=== PATIENT | female | born 1995 | race Caucasian/White ===

== ENCOUNTER 2017-08-23 23:43 | Inpatient (IN) | payer BC ==
[2017-08-24] MEDS ORDERED: hydrOXYzine HCl 25 MG Tab PO PRN (00:14)
[2017-08-24] MEDS: Lactated Ringers 1,000 ML IV SCH ×2 (03:05→09:00)
[2017-08-24] MEDS ORDERED: Ondansetron 4 MG/2 ML SDV IV PRN (03:17)
[2017-08-24] MEDS ORDERED: Tranexamic Acid 1,000 MG in Sodium Chloride 0.9% 100 ML IV PRN ×2 (03:17→11:54)
[2017-08-24] MEDS ORDERED: Sodium Chloride 0.9% 10 ML Syringe FLUSH PRN (03:17)
[2017-08-24] MEDS ORDERED: Nalbuphine 20 MG/1 ML Amp IM PRN (03:17)
[2017-08-24] MEDS ORDERED: Methylergonovine 0.2 MG/1 ML Amp IM PRN (03:17)
[2017-08-24] MEDS ORDERED: Carboprost Tromethamine 250 MCG/1 ML Amp IM PRN (03:17)
[2017-08-24] MEDS ORDERED: Lactated Ringers 500 ML IV ONE (03:17)
[2017-08-24] MEDS ORDERED: Misoprostol 400 MCG (4 X 100 MCG TAB) RECTAL PRN (03:17)
[2017-08-24] MEDS ORDERED: Oxytocin/Normal Saline 30 UNIT/500 ML BAG IV SCH (03:30)
[2017-08-24] MEDS ORDERED: EPINEPHrine 1 MG/ML SDV ONE ×2 (07:29→13:21)
[2017-08-24] MEDS ORDERED: fentaNYL 100 MCG/2 ML SDV ONE (07:29)
--- NOTE | 2017-08-24 10:08 | PCM.PRNOTE ---
- Free Text/Narrative Note: Requested to provide analgesia to full term patient in severe pain. Upon entering the room, patient is sitting on edge of bed complaining of severe abdominal pain and discomfort. Procedure was discussed with patient including adverse outcomes and expectations. Pt consented to analgesia, SAB/IT. Pt placed into a sitting position. Landmarks for SAB/IT were identified and marked. Back was prepped with betadine x3. A sterile, transparent, fenestrated drape was applied. Excess betadine was removed. Using 3 mL of a 1% lidocaine solution, a skin wheel was placed at the L3/L4 interspace. A 24 ga (4 inch) Pencan spinal needle was inserted until positive for CSF. Negative for heme or paresthesias. Injected fentanyl 20 mcg, sufentanil 10 mcg, and 9.75 mg of a 0.75% bupivacaine solution with an epi wash. Pt was placed left lateral position for approximately 20 minutes. There were zero complications or adverse outcomes. Will continue to monitor.
[2017-08-24] MEDS ORDERED: Simethicone 80 MG Tab.Chew PO PRN (11:54)
[2017-08-24] MEDS ORDERED: Oxytocin 10 Units/1 ML SDV IM PRN (11:54)
[2017-08-24] MEDS ORDERED: Benzocaine/Menthol 20%-0.5% Spray 56 GM Canister TOP PRN (11:54)
[2017-08-24] MEDS ORDERED: fentaNYL 100 MCG/2 ML SDV ITHECAL ONE (13:21)
--- NOTE | 2017-08-24 13:55 | PCM.LDHP ---
L&D History of Present Illness - General Date of Service: 08/24/17 Admit Problem/Dx: Patient Status Order with Admit Dx/Problem 08/24/17 03:18 Patient Status [ADT] Routine Admission Diagnosis/Problem Admission Diagnosis/Problem Normal labor Source of Information: Patient History Limitations: Reports: No Limitations - History of Present Illness Introduction:: 21-year-old at 40w6d presented to labor and delivery around midnight with increasing contractions since 3:00 PM. Date he had been active. No leaking of fluid or vaginal bleeding. Patient was monitored for 3 hours and noted to have made significant cervical change so she was admitted for management of active labor. Upon my examination, patient had just received her intrathecal and was quite comfortable. No dizziness or lightheadedness. No hypotension. Patient was otherwise feeling well. Pain Score: 9 - Related Data Allergies/Adverse Reactions: Allergies Allergy/AdvReac Type Severity Reaction Status Date / Time amoxicillin Allergy Hives Verified 08/23/17 23:54 Sulfa (Sulfonamide Allergy Hives Verified 08/23/17 23:54 Antibiotics) Past Medical History Genitourinary History: Reports: [employer]D [employer] History: Reports: Other (See Below) Other OB/BYN History: BV, + GBS Musculoskeletal History: Reports: RA - Past Surgical History HEENT Surgical History: Reports: Tonsillectomy Social & Family History - Family History Family Medical History: Noncontributory - Tobacco Use Smoking Status *Q: Current Every Day Smoker Years of Tobacco use: 5 Packs/Tins Daily: 1 Used Tobacco, but Quit: No Second Hand Smoke Exposure: Yes - Caffeine Use Caffeine Use: Reports: Soda - Recreational Drug Use Recreational Drug Use: No H&P Review of Systems - Review of Systems: Review Of Systems: See Below General: Reports: No Symptoms HEENT: Reports: No Symptoms Pulmonary: Reports: No Symptoms Cardiovascular: Reports: No Symptoms Gastrointestinal: Reports: No Symptoms Genitourinary: Reports: No Symptoms Musculoskeletal: Reports: No Symptoms L&D Exam - Exam Exam: See Below - Vital Signs Vital Signs: Last Vital Signs Temp 36.5 C 08/24/17 07:40 Pulse 80 08/24/17 08:30 Resp 16 08/24/17 08:30 BP 110/64 08/24/17 08:30 Pulse Ox 99 02/14/18 08:30 Weight: 97.069 kg - OB Specific Contraction Duration (sec): 90-110 Contraction Frequency (min): 4-5 Contraction Intensity: Moderate to Strong Movement: Active Heart Tones: Present Heart Tones per Min: 140 Presentation: Vertex - Mejia Score Mejia Score Cervix Position: Anterior Mejia Score Consistency: Soft Mejia Score Effacement: >80% (90) Mejia Score Dilation: > 5 cm (7) Mejia Score 's Station: -1 ,0 Mejia Score Total: 12 - Exam General: Alert, Oriented HEENT: Conjunctiva Clear, Mucosa Moist & [place], Posterior Pharynx Clear Lungs: Clear to Auscultation, Normal Respiratory Effort Cardiovascular: Regular Rate, Regular Rhythm. No: Systolic Murmur, Diastolic Murmur GI/Abdominal Exam: Normal Bowel Sounds Genitourinary: Normal external exam Extremities: No Pedal Edema Skin: Warm, Dry, Intact - Patient Data Lab Results Last 24 hrs: Laboratory Results - last 24 hr 08/24/17 Range/Units 03:30 WBC 18.1 H (5.0-10.0) 10^3/uL RBC 3.64 L (4.2-5.4) 10^6/uL Hgb 10.1 L (12.0-16.0) g/dL Hct 30.7 L (37.0-47.0) % MCV 84.3 (80-100) fL MCH 27.7 (27.0-34.0) pg MCHC 32.9 L (33.0-35.0) g/dL Plt Count 195 (150-450) 10^3/uL Result Diagrams: 08/24/17 03:30 - Problem List (1) care in third trimester SNOMED Code(s): 245437902, 48166667, 507685163, 467417800 ICD Code: Z34.93 - ENCNTR FOR SUPRVSN OF NORMAL PREG, UNSP, THIRD TRIMESTER Status: Acute Current Visit: Yes (2) Tobacco smoking affecting in third trimester SNOMED Code(s): 099810279, 466541002, 062160812, 011019632 ICD Code: O99.333 - SMOKING (TOBACCO) COMPLICATING , THIRD TRIMESTER Status: Acute Current Visit: Yes (3) GBS (group B Streptococcus carrier), +RV culture, currently SNOMED Code(s): 6460968316714, 2354452802058 ICD Code: O99.820 - STREPTOCOCCUS B CARRIER STATE COMPLICATING Status: Acute Current Visit: Yes (4) Rubella non-immune status, antepartum SNOMED Code(s): 690888271 ICD Code: O99.89 - OTH DISEASES AND CONDITIONS COMPL PREG/CHLDBRTH; Z28.3 - UNDERIMMUNIZATION STATUS Status: Acute Current Visit: Yes Problem List Initiated/Reviewed/Updated: Yes Orders Last 24hrs: Active Orders 24 hr Category Date Time Status Patient Status [ADT] Routine ADT 08/24/17 03:18 Active Notify Provider Vital Signs OB [RC] ASDIRECTED Care 08/24/17 03:18 Active OB Check [OM.PC] Click To Edit Care 08/24/17 00:14 Ordered Pump Management, Intrathecal [RC] ASDIRECTED Care 08/24/17 03:20 Inactive Up ad Cassi [RC] ASDIRECTED Care 08/24/17 03:18 Active Vital Signs [RC] PFP Care 08/24/17 11:54 Active Consult to Mattress Specialist [CONS] Routine Cons 08/24/17 11:54 Active Regular Diet [DIET] Diet 08/24/17 Lunch Active Acetaminophen [Tylenol] Med 08/24/17 03:17 Active 650 mg PO Q4H PRN Benzocaine/Menthol [Dermoplast Pain Relief [place]] Med 08/24/17 11:54 Active See Dose Instructions TOP Q4H PRN Carboprost Tromethamine [Hemabate DS] Med 08/24/17 03:17 Active 250 mcg IM ASDIRECTED PRN Docusate Sodium [Colace] Med 08/24/17 11:54 Active 100 mg PO BID PRN Ibuprofen [Motrin] Med 08/24/17 11:54 Active 800 mg PO Q8H PRN Methylergonovine [Methergine] Med 08/24/17 03:17 Active 0.2 mg IM ASDIRECTED PRN Misoprostol [Cytotec] Med 08/24/17 03:17 Active 800 mcg RECTAL ASDIRECTED PRN Ondansetron [Zofran] Med 08/24/17 03:17 Active 4 mg IV Q4H PRN Oxytocin [Pitocin] Med 08/24/17 11:54 Active 10 unit IM ONETIME PRN Oxytocin/Normal Saline [Pitocin in NS 30 UNIT/500 ML] Med 08/24/17 03:30 Active 30 unit in 500 ml IV TITRATE Vit with Ca/FA/Iron [ Plus Iron] Med 08/25/17 09:00 Active 1 each PO DAILY Simethicone Med 08/24/17 11:54 Active 80 mg PO Q4H PRN Sodium Chloride 0.9% [Saline Flush] Med 08/24/17 03:17 Active 10 ml FLUSH ASDIRECTED PRN Tranexamic Acid [Cyklokapron] 1,000 mg Med 08/24/17 11:54 Active Sodium Chloride 0.9% [Normal Saline] 100 ml IV ONETIME Assess Lochia [WOMSER] Per Unit Routine Ot 08/24/17 11:54 Ordered Assess Uterine Involution [WOMSER] Per Unit Routine Oth 08/24/17 11:54 Ordered Breast Pump [WOMSER] Per Unit Routine Ot 08/24/17 11:54 Ordered Heart Monitor External [WOMSER] Routine Ot 08/24/17 00:14 Ordered Ice Therapy [OM.PC] Per Unit Routine Oth 08/24/17 11:54 Ordered Perineal Care [OM.PC] Per Unit Routine Ot 08/24/17 11:54 Ordered Saline Lock Insert [OM.PC] Routine Ot 08/24/17 03:18 Ordered Sitz Bath [OM.PC] Per Unit Routine Oth 08/24/17 11:54 Ordered Resuscitation Status Routine Resus Stat 08/24/17 03:17 Ordered Medication Orders Acetaminophen (Tylenol) 650 mg PO Q4H PRN PRN Reason: Pain (Mild 1-3) and fever Benzocaine/Menthol (Dermoplast Pain Relief [place]) 0 gm TOP Q4H PRN PRN Reason: Perineal comfort measures Carboprost Tromethamine (Hemabate Ds) 250 mcg IM ASDIRECTED PRN PRN Reason: HEMORRHAGE Docusate Sodium (Colace) 100 mg PO BID PRN PRN Reason: Constipation Oxytocin/Sodium Chloride (Pitocin In Ns 30 Unit/500 Ml) 30 unit in 500 mls @ 2 mls/hr IV TITRATE REID; 2 MUNITS/MIN PRN Reason: Protocol Last Titration: 08/24/17 12:05 Dose: 250 mls/hr Admin: 08/24/17 11:55 Dose: 2 munits/min, 500 mls/hr Tranexamic Acid 1,000 mg/ (Sodium Chloride) 110 mls @ 660 mls/hr IV ONETIME PRN PRN Reason: Bleeding Ibuprofen (Motrin) 800 mg PO Q8H PRN PRN Reason: Mild Pain or Fever Methylergonovine Maleate (Methergine) 0.2 mg IM ASDIRECTED PRN PRN Reason: Hemorrhage Misoprostol (Cytotec) 800 mcg RECTAL ASDIRECTED PRN PRN Reason: Hemorrhage Ondansetron HCl (Zofran) 4 mg IV Q4H PRN PRN Reason: Nausea/Vomiting Last Admin: 08/24/17 07:35 Dose: 4 mg Oxytocin (Pitocin) 10 unit IM ONETIME PRN PRN Reason: Bleeding Prenat Multivit/Drapery Worker/Iron/Folic Ac ( Plus Iron) 1 each PO DAILY REID Simethicone (Simethicone) 80 mg PO Q4H PRN PRN Reason: Gas Sodium Chloride (Saline Flush) 10 ml FLUSH ASDIRECTED PRN PRN Reason: Keep Vein Open Assessment/Plan Comment:: 21-year-old in active labor at 40w5d 1. Continue routine intrapartum caries. 2. AROM for thin meconium fluid. Moderate amount. 4. Patient has received 2 doses vancomycin for GBS positive status. 4. Patient is comfortable with intrathecal. 5. Expectant management. Anticipate vaginal delivery. Sally Campoverde MD
--- NOTE | 2017-08-24 14:02 | PCM.DEL ---
L & D Note - General Info Date of Service: 08/24/17 Mother's Due Date: 08/19/17 - Delivery Note Labor: Spontaneous, Augmented by ARM, Augmented by Oxytocin Delivery Outcome: Livebirth Delivery Method: Spontaneous Vaginal Delivery-Single Presentation: Vertex Nuchal Cord: None Prep: Povidone-Iodine (Betadine Anesthesia Type: Intrathecal Amniotic Fluid Description: Meconium Stained Episiotomy Type: None Laceration: 1st Degree, Labial (Bilateral) Suture size: 4-0 Placenta: Intact, Spontaneous Cord: 3 Vessels Estimated Blood Loss: 175 [place]: Bulb Syringe, Stimulated, Warmed Provider: Sally Campoverde Score 1 min: 8 Score 5 min: 9 Delivery Comments (Free Text/Narrative):: 21-year-old at 40w5d presented to labor and delivery in active labor. She progressed to 5 cm dilated and received intrathecal. She also received 2 doses of vancomycin for GBS positive status. Patient received an intrathecal for pain control and her membranes were artificially ruptured for moderate amount of meconium-stained fluid. Patient then progressed to complete dilation. She pushed for approximately 40 minutes with good progress and delivered a viable female infant with Apgars of 8 and 9 at one and 5 minutes respectively. Baby was placed on mother. Umbilical cord was clamped twice and cut. Cord blood was collected. Examination of the perineum revealed a first-degree perineal laceration was hemostatic. No repair was necessary. Patient did have bilateral labial tears which were reapproximated with 4-0 Vicryl suture. The placenta then delivered spontaneously and was noted to be intact. Bleeding was brisk initially but resolved with bimanual massage and sweeping of clots from the lower uterine segment. Patient tolerated the procedure well, and there were no immediate complications. weight and measurements are pending at this time. - General Info Date of Service: 08/24/17 - Patient Data Vitals - Most Recent: Last Vital Signs Temp 36.5 C 08/24/17 07:40 Pulse 80 08/24/17 08:30 Resp 16 08/24/17 08:30 BP 110/64 08/24/17 08:30 Pulse Ox 99 08/24/17 08:30 Weight - Most Recent: 97.069 kg I&O - Last 24 Hours: Intake & Output 08/23/17 08/24/1718 22:59 06:59 14:59 Intake Total 25 Balance 25 Lab Results Last 24 Hours: Laboratory Results - last 24 hr 08/24/17 Range/Units 03:30 WBC 18.1 H (5.0-10.0) 10^3/uL RBC 3.64 L (4.2-5.4) 10^6/uL Hgb 10.1 L (12.0-16.0) g/dL Hct 30.7 L (37.0-47.0) % MCV 84.3 (80-100) fL MCH 27.7 (27.0-34.0) pg MCHC 32.9 L (33.0-35.0) g/dL Plt Count 195 (150-450) 10^3/uL Med Orders - Current: Current Medications Acetaminophen (Tylenol) 650 mg PO Q4H PRN PRN Reason: Pain (Mild 1-3) and fever Benzocaine/Menthol (Dermoplast Pain Relief [place]) 0 gm TOP Q4H PRN PRN Reason: Perineal comfort measures Carboprost Tromethamine (Hemabate Ds) 250 mcg IM ASDIRECTED PRN PRN Reason: HEMORRHAGE Docusate Sodium (Colace) 100 mg PO BID PRN PRN Reason: Constipation Oxytocin/Sodium Chloride (Pitocin In Ns 30 Unit/500 Ml) 30 unit in 500 mls @ 2 mls/hr IV TITRATE REID; 2 MUNITS/MIN PRN Reason: Protocol Last Titration: 08/24/17 12:05 Dose: 250 mls/hr Tranexamic Acid 1,000 mg/ (Sodium Chloride) 110 mls @ 660 mls/hr IV ONETIME PRN PRN Reason: Bleeding Ibuprofen (Motrin) 800 mg PO Q8H PRN PRN Reason: Mild Pain or Fever Methylergonovine Maleate (Methergine) 0.2 mg IM ASDIRECTED PRN PRN Reason: Hemorrhage Misoprostol (Cytotec) 800 mcg RECTAL ASDIRECTED PRN PRN Reason: Hemorrhage Ondansetron HCl (Zofran) 4 mg IV Q4H PRN PRN Reason: Nausea/Vomiting Last Admin: 08/24/17 07:35 Dose: 4 mg Oxytocin (Pitocin) 10 unit IM ONETIME PRN PRN Reason: Bleeding Prenat Multivit/[place]/Iron/Folic Ac ( Plus Iron) 1 each PO DAILY [facility] Simethicone (Simethicone) 80 mg PO Q4H PRN PRN Reason: Gas Sodium Chloride (Saline Flush) 10 ml FLUSH ASDIRECTED PRN PRN Reason: Keep Vein Open Discontinued Medications Epinephrine HCl (Adrenalin) Confirm Administered Dose 1 mg .ROUTE .STK-MED ONE Stop: 08/24/17 07:30 Last Admin: 08/24/17 11:53 Dose: Not Given Epinephrine HCl (Adrenalin) 0.1 mg .XX .STK-MED ONE Stop: 08/24/17 13:22 Fentanyl (Sublimaze) Confirm Administered Dose 100 mcg .ROUTE .STK-MED ONE Stop: 08/24/17 07:30 Last Admin: 08/24/17 11:54 Dose: Not Given Fentanyl (Sublimaze) 20 mcg ITHECAL .STK-MED ONE Stop: 08/24/17 13:22 Hydroxyzine HCl (Atarax) 50 mg PO ONETIME PRN PRN Reason: Sleep Last Admin: 08/24/17 01:20 Dose: 50 mg Lactated Ringer's (Ringers, Lactated) 500 mls @ 999 mls/hr IV .BOLUS ONE Stop: 08/24/17 03:47 Last Admin: 08/24/17 07:44 Dose: 999 mls/hr Lactated Ringer's (Ringers, Lactated) 1,000 mls @ 125 mls/hr IV ASDIRECTED [facility] Last Admin: 08/24/17 09:00 Dose: 125 mls/hr Tranexamic Acid 1,000 mg/ (Sodium Chloride) 110 mls @ 600 mls/hr IV ONETIME PRN PRN Reason: Bleeding Vancomycin HCl 1 gm/ Sodium (Chloride) 250 mls @ 166.7 mls/hr IV Q12H [facility] Last Admin: 08/24/17 04:06 Dose: 166.7 mls/hr Nalbuphine HCl (Nubain) 20 mg IM ONETIME PRN PRN Reason: Pain (moderate 4-6) Last Admin: 08/24/17 03:35 Dose: 20 mg Sufentanil Citrate (Sufenta) Confirm Administered Dose 50 mcg .ROUTE .STK-MED ONE Stop: 08/24/17 07:30 Last Admin: 08/24/17 11:54 Dose: Not Given Sufentanil Citrate (Sufenta) 10 mcg ITHECAL .STK-MED ONE Stop: 08/24/17 13:22 - Problem List & Annotations (1) care in third trimester SNOMED Code(s): 740676476, 53699983, 621407839, 868027292 Code(s): Z34.93 - ENCNTR FOR SUPRVSN OF NORMAL PREG, UNSP, THIRD TRIMESTER Status: Acute Current Visit: Yes (2) Tobacco smoking affecting in third trimester SNOMED Code(s): 412786947, 162052401, 453550546, 332633388 Code(s): O99.333 - SMOKING (TOBACCO) COMPLICATING , THIRD TRIMESTER Status: Acute Current Visit: Yes (3) GBS (group B Streptococcus carrier), +RV culture, currently SNOMED Code(s): 3700873084622, 4239609272206 Code(s): O99.820 - STREPTOCOCCUS B CARRIER STATE COMPLICATING Status: Acute Current Visit: Yes (4) Rubella non-immune status, antepartum SNOMED Code(s): 026802823 Code(s): O99.89 - OTH DISEASES AND CONDITIONS COMPL PREG/CHLDBRTH; Z28.3 - UNDERIMMUNIZATION STATUS Status: Acute Current Visit: Yes - Problem List Review Problem List Initiated/Reviewed/Updated: Yes - My Orders Last 24 Hours: My Active Orders 08/24/17 00:14 OB Check [OM.PC] Click To Edit Heart Monitor External [WOMSER] Routine 08/24/17 03:17 Acetaminophen [Tylenol] 650 mg PO Q4H PRN Carboprost Tromethamine [Hemabate DS] 250 mcg IM ASDIRECTED PRN Methylergonovine [Methergine] 0.2 mg IM ASDIRECTED PRN Misoprostol [Cytotec] 800 mcg RECTAL ASDIRECTED PRN Ondansetron [Zofran] 4 mg IV Q4H PRN Sodium Chloride 0.9% [Saline Flush] 10 ml FLUSH ASDIRECTED PRN Resuscitation Status Routine 08/24/17 03:18 Patient Status [ADT] Routine Notify Provider Vital Signs OB [RC] ASDIRECTED Up ad Cassi [RC] ASDIRECTED Saline Lock Insert [OM.PC] Routine 08/24/17 03:20 Pump Management, Intrathecal [RC] ASDIRECTED 08/24/17 03:30 Oxytocin/Normal Saline [Pitocin in NS 30 UNIT/500 ML] 30 unit in 500 ml IV TITRATE 08/24/17 11:54 Vital Signs [RC] PFP Consult to Bus Cleaner [CONS] Routine Benzocaine/Menthol [Dermoplast Pain Relief [place]] See Dose Instructions TOP Q4H PRN Docusate Sodium [Colace] 100 mg PO BID PRN Ibuprofen [Motrin] 800 mg PO Q8H PRN Oxytocin [Pitocin] 10 unit IM ONETIME PRN Simethicone 80 mg PO Q4H PRN Tranexamic Acid [Cyklokapron] 1,000 mg Sodium Chloride 0.9% [Normal Saline] 100 ml IV ONETIME Assess Lochia [WOMSER] Per Unit Routine Assess Uterine Involution [WOMSER] Per Unit Routine Breast Pump [WOMSER] Per Unit Routine Ice Therapy [OM.PC] Per Unit Routine Perineal Care [OM.PC] Per Unit Routine Sitz Bath [OM.PC] Per Unit Routine 08/24/17 Lunch Regular Diet [DIET] 08/25/17 09:00 Vit with Ca/FA/Iron [ Plus Iron] 1 each PO DAILY - Assessment Assessment:: 21-year-old now status post normal spontaneous vaginal delivery - Plan Plan:: 1. Initiate routine intrapartum orders. 2. Mother plans to breast-feed. 3. Anticipate discharge on 08/26/2017. Dr. Cunha will see the patient tomorrow in my absence. Sally Campoverde MD
[2017-08-25] MEDS: Ibuprofen 800 MG Tab PO PRN ×3 (01:43→19:50)
[2017-08-25] MEDS: Prenatal Multivitamin with Calcium/Folic Acid/Iron Tab PO SCH (09:32)
[2017-08-25] MEDS: Acetaminophen 325 MG Tab PO PRN ×2 (18:00→23:02)
[2017-08-25] MEDS: Docusate Sodium 100 MG Cap PO PRN (19:51)
--- NOTE | 2017-08-25 23:01 | PN ---
DATE: 08/25/2017 TIME: 8:30 this morning. SUBJECTIVE: day #1 1, now para 1, female patient who normal spontaneous vaginal delivery with only some bilateral labial lacerations. She reports she has done well through the night. Bleeding has been a little bit heavier than a period. has not been going well, and the baby has an overall poor suck reflex even when given a bottle though she is working with the nurses on that. No fever or chills. No symptoms of preeclampsia. No chest pain or shortness of breath. Ambulating without difficulties. Tolerating a regular diet. Voiding without complications and has not had a bowel movement yet. OBJECTIVE: Vital Signs: Pulse 80, blood pressure 110/64, respiratory rate of 16, O2 saturations 99% on room air, and temperature 97.7. HEENT: Grossly unremarkable. Heart: Regular without obvious murmur. Lungs: Clear to auscultation bilaterally. Abdomen: Soft and nontender. Fundus is firm and below the umbilicus. Extremities: No edema, erythema, or tenderness noted. ASSESSMENT: 1. Post vaginal delivery day #1, doing well. 2. Bilateral labial lacerations. 3. Tobacco abuse. 4. mother. PLAN: Continue routine cares and anticipate discharge home tomorrow as long as all continues to go well. The patient's questions were answered, and she was in agreement with the plan. [facility] /[id number] MTDD
[2017-08-26] MEDS ORDERED: Measles, Mumps & Rubella Vaccine 0.5 ML SDV SUBCUT ONE (07:52)
[2017-08-26] MEDS: Prenatal Multivitamin with Calcium/Folic Acid/Iron Tab PO SCH (08:09)
[2017-08-26] MEDS: Ibuprofen 800 MG Tab PO PRN (08:09)
[2017-08-26] MEDS: Docusate Sodium 100 MG Cap PO PRN (08:09)
--- NOTE | 2017-08-27 05:46 | DISCH ---
ADMITTING DIAGNOSES: 1. A 40 and 5/7 weeks' gestation in active labor. 2. 1, para 0. 3. Tobacco use. 4. Group B streptococcus positive. 5. Rubella nonimmune. DISCHARGE DIAGNOSES: 1. A 40 and 5/7 weeks' gestation in active labor. 2. 1, now para 1. 3. Tobacco use. 4. Group B streptococcus positive. 5. Rubella nonimmune. 6. Status post spontaneous vaginal delivery, viable female infant. BRIEF HISTORY: The patient presented to the hospital in active labor, which was managed, and she was in stage I for approximately 7 hours, stage II for about 40 minutes, and stage III for approximately 15 minutes. There were no complications, and the patient did quite well. Please see admission history and physical and delivery notes for full details. HOSPITAL COURSE: Since delivery, the patient has been doing well, ambulating, tolerating, regular diet, voiding, and passing flatus. Blood loss has been as expected. She denies any symptoms of preeclampsia or severe anemia. her baby and that has been a bit of a struggle because the baby's sucking ability, but that is improving and they are working with nursing on that. DISCHARGE CONDITION: Good. PHYSICAL EXAMINATION: Vital Signs: Temperature is 97.9, pulse 92, blood pressure 132/85, respiratory rate of 16, and O2 saturations 99% on room air. Heart: Regular without obvious murmur. Lungs: Clear to auscultation bilaterally. Abdomen: Soft and nontender and fundus firm below the umbilicus. Extremities: Trace edema. No erythema or tenderness. LABORATORY DATA: Admission hemoglobin of 10.1 and platelets of 195. Dr. Campoverde elected not to repeat those prior to discharge. No additional labs were required. DISPOSITION: Home with family. FOLLOWUP: She will need to make a 6-week exam appointment when she brings her daughter in for first check. DISCHARGE INSTRUCTIONS: Routine post vaginal delivery care instructions were provided including pelvic rest for 6 weeks, to return or come back in if she has any foul-smelling drainage or discharge, fever, chills, uterine tenderness, or other acute concerns, and her questions were answered. DISCHARGE MEDICATIONS: 1. Iron 325 mg twice daily. 2. Colace 100 mg twice daily as needed for constipation. 3. Ibuprofen 600 mg every 6 hours as needed for pain. 4. Tylenol 650 mg every 6 hours as needed for pain. 5. vitamin 1 daily. [facility] /[id number]
== END 2017-08-26 09:15 | disposition home or self-care (01) | DRG 560 ==
LOC: DL.OBCHECK 23:43 → DL.OB 08-24 02:00 → OBSVTOIN 08-24 11:32
PROVIDERS: ADMIT Family Medicine; ATTEND Family Medicine
PROC: 10E0XZZ Delivery of Products of Conception, External Approach (ICD-10-PCS; principal; 2017-08-24)
PROC: 10907ZC Drainage of Amniotic Fluid, Therapeutic from Products of Conception, Via Natural or Artificial Opening (ICD-10-PCS; 2017-08-24)
PROC: 0HQ9XZZ Repair Perineum Skin, External Approach (ICD-10-PCS; 2017-08-24)
PROC: 00HU33Z Insertion of Infusion Device into Spinal Canal, Percutaneous Approach (ICD-10-PCS; 2017-08-24)
PROC: 3E0R3BZ Introduction of Anesthetic Agent into Spinal Canal, Percutaneous Approach (ICD-10-PCS; 2017-08-24)
DX: O48.0 Post-term pregnancy (principal); Z3A.41 41 weeks gestation of pregnancy; Z37.0 Single live birth; O99.824 Streptococcus B carrier state complicating childbirth; O99.334 Smoking (tobacco) complicating childbirth; Z88.1 Allergy status to other antibiotic agents; Z88.2 Allergy status to sulfonamides; O70.0 First degree perineal laceration during delivery
CPT/HCPCS: 36415; 59300; 59409; 85027; 90471; 90707; A9270-GY; J0171; J2300; J2405; J2590; J3010; J3370; J7050; J7120

== ENCOUNTER 2020-03-10 00:05 | Inpatient (IN) | payer BC ==
[~2020-03-10 00:05] MED LIST: Acetaminophen 325 MG Tab PO PRN; Butorphanol 2 MG/ML SDV IVPUSH PRN; Carboprost Tromethamine 250 MCG/1 ML Amp IM PRN; Lactated Ringers 1,000 ML IV ONE; Lidocaine 1% 30 ML SDV INJECT PRN; Methylergonovine 0.2 MG/1 ML Amp IM PRN; Misoprostol 25 MCG (1/4 of 100 MCG) Tab VAG PRN; Misoprostol 400 MCG (4 X 100 MCG TAB) RECTAL PRN; Naloxone 2 MG/2 ML Syringe IVPUSH PRN; Ondansetron 4 MG/2 ML SDV IVPUSH PRN; Oxytocin/Normal Saline 30 UNIT/500 ML BAG IV SCH; Promethazine 25 MG/ML SDV IM PRN; Sodium Chloride 0.9% 1,000 ML IV SCH; Sodium Chloride 0.9% 10 ML Syringe FLUSH PRN; Tranexamic Acid 1,000 MG in Sodium Chloride 0.9% 100 ML IV PRN; ePHEDrine 50 MG/ML SDV IVPUSH PRN; fentaNYL 100 MCG/2 ML SDV IVPUSH PRN
[2020-03-10] MEDS ORDERED: EPINEPHrine 1 MG/1 ML Amp ONE ×2 (00:09→09:19)
[2020-03-10] MEDS ORDERED: fentaNYL 100 MCG/2 ML SDV ITHECAL ONE ×2 (00:09)
[2020-03-10] MEDS: Lactated Ringers 1,000 ML IV SCH ×3 (01:48→09:25)
[2020-03-10] MEDS: Clindamycin Phosphate 900 MG in Sodium Chloride 0.9% 100 ML IV SCH ×2 (03:10→11:06)
[2020-03-10] MEDS ORDERED: Calcium Carbonate 500 MG Tab.Chew PO PRN (03:23)
[2020-03-10] MEDS ORDERED: fentaNYL 100 MCG/2 ML SDV ONE (09:19)
--- NOTE | 2020-03-10 09:48 | PCM.PRNOTE ---
- Free Text/Narrative Note: Requested to provide analgesia to full term patient in severe pain. Upon entering the room, patient is sitting on edge of bed complaining of severe abdominal/pelvic pain and discomfort. Patient is complaining of severe back labor. Procedure was discussed with patient including adverse outcomes and expectations. Pt consented to analgesia, SAB/IT. Pt placed into a proper sitting position. Landmarks for SAB/IT were identified and marked. Touching mom with hands was uncomfortable and I believe I was pretty gentle with my landmark identification. Hands were washed and appropriate PPE was applied. Back was prepped with betadine x3, pt flinched even with betadine application. A sterile, transparent, fenestrated drape was applied. Excess betadine was removed. Using 3 mL of a 1% lidocaine solution, a skin wheel was placed at the L2/L3 interspace. On first attempt, a 24 ga (4 inch) Pencan spinal needle was inserted but patient was screaming and tearful simply going through the tissue layers. I removed the needle and had a discussion with patient explaining she would feel some pressure and I could not numb any better. Patient agreed to continue. Second attempt at same location with same needle, the 24 ga Pencan was advanced until positive for CSF. Negative for heme or paresthesias. Patient tolerated much better. Injected fentanyl 30 mcg, sufentanil 25 mcg, and 7.5 mg of a 0.75% bupivacaine solution with an epi wash. Pt was placed left lateral position for approximately 20 minutes. There were zero complications or adverse outcomes. Will continue to monitor. Procedure Date & Time: 03/10/20 [id number]
[2020-03-10] MEDS: Oxytocin/Normal Saline 30 UNIT/500 ML BAG IV SCH ×2 (10:30→13:45)
--- NOTE | 2020-03-10 13:48 | PCM.LDHP ---
L&D History of Present Illness - General Date of Service: 03/10/20 Admit Problem/Dx: Patient Status Order with Admit Dx/Problem 03/09/20 23:32 Patient Status [ADT] Routine Admission Diagnosis/Problem Admission Diagnosis/Problem care in third trimester Source of Information: Patient History Limitations: Reports: No Limitations - History of Present Illness Introduction:: 24-year-old presents for elective IOL at 40w0d. Patient has been feeling well. Baby has been active. Has had [place] contractions. No vaginal bleeding or leaking of fluid. 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: , Other (See Below) Other OB/BYN History: BV, + GBS Musculoskeletal History: Reports: RA - Past Surgical History HEENT Surgical History: Reports: Tonsillectomy Social & Family History - Family History Family Medical History: Noncontributory - Tobacco Use Smoking Status *Q: Light Tobacco Smoker Years of Tobacco use: 12 Packs/Tins Daily: 1 Used Tobacco, but Quit: No Second Hand Smoke Exposure: No - Caffeine Use Caffeine Use: Reports: None - Recreational Drug Use Recreational Drug Use: No H&P Review of Systems - Review of Systems: Review Of Systems: See Below General: Reports: No Symptoms HEENT: Reports: No Symptoms Pulmonary: Reports: No Symptoms Cardiovascular: Reports: No Symptoms Gastrointestinal: Reports: No Symptoms Genitourinary: Reports: No Symptoms Musculoskeletal: Reports: No Symptoms Skin: Reports: No Symptoms L&D Exam - Exam Exam: See Below - Vital Signs Vital Signs: Last Vital Signs Temp 36.3 C 03/10/20 10:30 Pulse 64 03/10/20 12:00 Resp 16 03/10/20 12:00 BP 110/62 03/10/20 12:00 Pulse Ox 98 03/10/20 11:15 Weight: 101.605 kg - OB Specific Contraction Duration (sec): 50-80 Contraction Frequency (min): 1.5-2 Contraction Intensity: Moderate to Strong Movement: Active Heart Tones: Present Heart Tones per Min: 135 Heart Rate (FHR) Variability: Moderate (6-25 bmp) Presentation: Vertex - Mejia Score Mejia Score Cervix Position: Posterior Mejia Score Consistency: Soft Mejia Score Dilation: 3-4 cm Mejia Score Infant's Station: -1 ,0 - Exam General: Alert, Oriented Lungs: Clear to Auscultation, Normal Respiratory Effort Cardiovascular: Regular Rate, Regular Rhythm Genitourinary: Normal external exam Back Exam: Normal Inspection Extremities: Pedal Edema (Trace bilaterally) - Patient Data Lab Results Last 24 hrs: Laboratory Results - last 24 hr 03/10/20 03/10/20 Range/Units 00:25 00:27 WBC 12.8 H (5.0-10.0) 10^3/uL RBC 3.57 L (4.2-5.4) 10^6/uL Hgb 9.6 L (12.0-16.0) g/dL Hct 29.6 L (37.0-47.0) % MCV 82.9 (80-100) fL MCH 26.9 L (27.0-34.0) pg MCHC 32.4 L (33.0-35.0) g/dL Plt Count 232 (150-450) 10^3/uL COVID-19 (CONNIE) Negative (NEGATIVE) Result Diagrams: 03/10/20 00:27 - Problem List (1) GBS (group B Streptococcus carrier), +RV culture, currently SNOMED Code(s): 7788216508432, 054932464, 8808489912329 ICD Code: O99.820 - STREPTOCOCCUS B CARRIER STATE COMPLICATING Status: Acute Current Visit: No (2) care in third trimester SNOMED Code(s): 933800334, 48576644, 89882476, 286312973, 672326315 ICD Code: Z34.93 - ENCNTR FOR SUPRVSN OF NORMAL PREG, UNSP, THIRD TRIMESTER Status: Acute Current Visit: No (3) Rubella non-immune status, antepartum SNOMED Code(s): 085074567 ICD Code: O99.89 - OTH DISEASES AND CONDITIONS COMPL PREG/CHLDBRTH; Z28.3 - UNDERIMMUNIZATION STATUS Status: Acute Current Visit: No (4) Tobacco smoking affecting in third trimester SNOMED Code(s): 386613029, 62207278, 721237638, 864076179, 390044146 ICD Code: O99.333 - SMOKING (TOBACCO) COMPLICATING , THIRD TRIMESTER Status: Acute Current Visit: No Problem List Initiated/Reviewed/Updated: Yes Orders Last 24hrs: Active Orders 24 hr Category Date Time Status Patient Status [ADT] Routine ADT 03/09/20 23:32 Active Heart Rate [RC] Click to Edit Care 03/09/20 23:34 Active Nitrous Oxide Delivery [RC] ASDIRECTED Care 03/09/20 23:35 Active Notify Provider Vital Signs OB [RC] ASDIRECTED Care 03/09/20 23:32 Active OB Discontinue Nitrous Oxide [RC] ASDIRECTED Care 03/09/20 23:35 Active Pump Management, Intrathecal [RC] ASDIRECTED Care 03/09/20 23:32 Active Up ad Cassi [RC] ASDIRECTED Care 03/09/20 23:32 Active Vaginal Exam [RC] PRN Care 03/09/20 23:36 Active Verify Patient Consent Obtain [RC] ASDIRECTED Care 03/09/20 23:34 Active Vital Signs [RC] PER UNIT ROUTINE Care 03/09/20 23:32 Active Regular Diet [DIET] Diet 03/10/20 Breakfast Active Acetaminophen [TylenoL] Med 03/09/20 23:32 Active 650 mg PO Q4H PRN Butorphanol [Stadol] Med 03/09/20 23:32 Active 0.5 mg IVPUSH Q3H PRN Butorphanol [Stadol] Med 03/09/20 23:32 Active 1 mg IVPUSH Q3H PRN Calcium Carbonate [Tums] Med 03/10/20 03:23 Active 1,000 mg PO Q2H PRN Carboprost Tromethamine [Hemabate DS] Med 03/09/20 23:32 Active 250 mcg IM ASDIRECTED PRN Clindamycin Phosphate [Cleocin] 900 mg Med 03/10/20 03:00 Active Sodium Chloride 0.9% [Normal Saline] 100 ml IV Q8H Lactated Ringers [Ringers, Lactated] 1,000 ml Med 03/09/20 23:45 Active IV ASDIRECTED Lidocaine 1% [Xylocaine-MPF 1%] Med 03/09/20 23:32 Active 30 ml INJECT ASDIRECTED PRN Methylergonovine [Methergine] Med 03/09/20 23:32 Active 0.2 mg IM ASDIRECTED PRN Naloxone [Narcan] Med 03/09/20 23:34 Active 0.1 mg IVPUSH SEECOMMENT PRN Ondansetron [Zofran] Med 03/09/20 23:32 Active 4 mg IVPUSH Q4H PRN Oxytocin/Normal Saline [Pitocin in NS 30 UNIT/500 ML] Med 03/09/20 23:45 Act lesia 30 unit in 500 ml IV TITRATE Oxytocin/Normal Saline [Pitocin in NS 30 UNIT/500 ML] Med 03/09/20 23:45 Active 30 unit in 500 ml IV TITRATE Promethazine [Phenergan] Med 03/09/20 23:34 Active 12.5 mg IM Q6H PRN Sodium Chloride 0.9% [Normal Saline] 1,000 ml Med 03/09/20 23:45 Active IV .BOLUS Sodium Chloride 0.9% [Saline Flush] Med 03/09/20 23:32 Active 10 ml FLUSH ASDIRECTED PRN Tranexamic Acid [Cyklokapron] 1,000 mg Med 03/09/20 23:32 Active Sodium Chloride 0.9% [Normal Saline] 100 ml IV ONETIME ePHEDrine [ePHEDrine sulfate] Med 03/09/20 23:34 Active 5 mg IVPUSH Q5M PRN fentaNYL [Sublimaze] Med 03/09/20 23:32 Active 100 mcg IVPUSH Q1H PRN miSOPROStoL [Cytotec] Med 03/09/20 23:36 Active 25 mcg VAG Q4H PRN miSOPROStoL [Cytotec] Med 03/09/20 23:32 Active 800 mcg RECTAL ASDIRECTED PRN Blood Pressure [OM.PC] Routine Oth 03/09/20 23:34 Ordered Saline Lock Insert [OM.PC] Routine Oth 03/09/20 23:32 Ordered Resuscitation Status Routine Resus Stat 03/09/20 23:32 Ordered Medication Orders Acetaminophen (Tylenol) 650 mg PO Q4H PRN PRN Reason: Pain (Mild 1-3) and fever Butorphanol Tartrate (Stadol) 0.5 mg IVPUSH Q3H PRN PRN Reason: Pain Butorphanol Tartrate (Stadol) 1 mg IVPUSH Q3H PRN PRN Reason: Pain Last Admin: 03/10/20 06:10 Dose: 1 mg Documented by: GARRETT Calcium Carbonate/Glycine (Tums) 1,000 mg PO Q2H PRN PRN Reason: Heartburn Last Admin: 03/10/20 03:33 Dose: 1,000 mg Documented by: GARRETT Carboprost Tromethamine (Hemabate Ds) 250 mcg IM ASDIRECTED PRN PRN Reason: HEMORRHAGE Ephedrine Sulfate (Ephedrine Sulfate) 5 mg IVPUSH Q5M PRN PRN Reason: See Label Comments Fentanyl (Sublimaze) 100 mcg IVPUSH Q1H PRN PRN Reason: Pain (moderate 4-6) Last Admin: 03/10/20 12:53 Dose: 100 mcg Documented by: DIMITRI Tranexamic Acid 1,000 mg/ (Sodium Chloride) 110 mls @ 660 mls/hr IV ONETIME PRN PRN Reason: Bleeding Oxytocin/Sodium Chloride (Pitocin In Ns 30 Unit/500 Ml) 30 unit in 500 mls @ 2 mls/hr IV TITRATE REID; Protocol Clindamycin Phosphate 900 mg/ (Sodium Chloride) 106 mls @ 200 mls/hr IV Q8H REID Last Admin: 03/10/20 11:06 Dose: 200 mls/hr Documented by: Admin: 03/10/20 03:10 Dose: 200 mls/hr Documented by: GARRETT Lactated Ringer's (Ringers, Lactated) 1,000 mls @ 125 mls/hr IV ASDIRECTED REID Last Admin: 03/10/20 09:25 Dose: 125 mls/hr Documented by: Infusion: 03/10/20 09:25 Dose: 125 mls/hr Documented by: Admin: 03/10/20 06:33 Dose: 125 mls/hr Documented by: Infusion: 03/10/20 06:33 Dose: 125 mls/hr Documented by: Admin: 03/10/20 01:48 Dose: 125 mls/hr Documented by: GARRETT Sodium Chloride (Normal Saline) 1,000 mls @ 500 mls/hr IV .BOLUS REID Oxytocin/Sodium Chloride (Pitocin In Ns 30 Unit/500 Ml) 30 unit in 500 mls @ 2 mls/hr IV TITRATE REID; Protocol Last Titration: 03/10/20 11:30 Dose: 6 munits/min, 6 mls/hr Documented by: Titration: 03/10/20 11:00 Dose: 4 munits/min, 4 mls/hr Documented by: Admin: 03/10/20 10:30 Dose: 2 munits/min, 2 mls/hr Documented by: DIMITRI Lidocaine HCl (Xylocaine-Mpf 1%) 30 ml INJECT ASDIRECTED PRN PRN Reason: Perineal Repair Methylergonovine Maleate (Methergine) 0.2 mg IM ASDIRECTED PRN PRN Reason: Hemorrhage Misoprostol (Cytotec) 800 mcg RECTAL ASDIRECTED PRN PRN Reason: Hemorrhage Last Admin: 03/10/20 12:55 Dose: 800 mcg Documented by: DIMITRI Misoprostol (Cytotec) 25 mcg VAG Q4H PRN PRN Reason: cervical ripening Last Admin: 03/10/20 01:45 Dose: 25 mcg Documented by: GARRETT Naloxone HCl (Narcan) 0.1 mg IVPUSH SEECOMMENT PRN PRN Reason: Respiratory Depression Ondansetron HCl (Zofran) 4 mg IVPUSH Q4H PRN PRN Reason: Nausea/Vomiting Promethazine HCl (Phenergan) 12.5 mg IM Q6H PRN PRN Reason: Nausea/Vomiting Sodium Chloride (Saline Flush) 10 ml FLUSH ASDIRECTED PRN PRN Reason: Keep Vein Open Assessment/Plan Comment:: 24-year-old at 40w0d for elective induction 1. Patient received 1 dose Cytotec prior to my examination 2. AROM was performed for moderate clear fluid 3. Patient does desire intrathecal. 4. Expectant management. Anticipate Sally Campoverde MD
[2020-03-10] MEDS ORDERED: Sodium Chloride 0.9% 100 ML ONE (15:12)
[2020-03-10] MEDS ORDERED: Oxytocin/Normal Saline 30 UNIT/500 ML BAG ONE (15:49)
--- NOTE | 2020-03-10 15:57 | PCM.DEL ---
L & D Note - General Info Date of Service: 03/10/20 Mother's Due Date: 03/10/20 - Delivery Note Labor: Augmented by ARM, Augmented by Oxytocin Cervical Ripening Method: Misoprostil, Oxytocin Delivery Outcome: Livebirth Delivery Method: Spontaneous Vaginal Delivery-Single Presentation: Vertex Nuchal Cord: Present, Reduced Anesthesia Type: Intrathecal, Nitrous Oxide Amniotic Fluid Description: Clear Episiotomy Type: None Laceration: None Placenta: Manual Removal, Retained, Abnormal Cord: 3 Vessels Estimated Blood Loss: 2,240 Resuscitation Needed: No [place]: Bulb Syringe, Stimulated, Warmed, [place] Used Provider: Sally Campoverde Score 1 min: 8 Score 5 min: 9 Post Delivery Events: Retained Placenta Delivery Comments (Free Text/Narrative):: 24-year-old at 40w0d presented to L&D for elective IOL at 40w0d. She received 1 dose of Cytotec vaginally. She received Clindamycin for GBS positive status. After 4 hours, patient was saba too frequently for a 2nd dose of Cytotec. AROM was performed at 0900 for moderate clear fluid. Pitocin was started around 1030 for augmentation of labor. Patient received an intrathecal and nitrous oxide for pain control. She progressed to complete dilatation at 1225. Patient pushed for 2 minutes and delivered a viable female infant with Apgars of 8 and 9 at 1 and 5 minutes respectively and weighing 7 lb 11 oz. A loose nuchal cord was reduced after delivery. was placed on the mother's chest. Cord was clamped x 2 and cut by patient's significant other. Cord blood was collected. Uterine massage and gentle umbilical cord traction was used to attempt to coax the placenta to spontaneously deliver. However, after 22 minutes, there were no indications that the placenta would deliver spontaneously. Patient was given 100 mcg fentanyl and nitrous oxide. Manual removal of the placenta was performed with difficulty as finding a shearing edge was difficult. Examination of the placenta revealed obvious missing cotyledons. Manual exploration of the uterus was performed x 2 with a 3 cm piece of cotyledon and multiple small pieces of membrane being removed. Pitocin was initiated. Bleeding remained brisk. Uterus would remain firm with persistent uterine massage but would become boggy after in about 1 minute after massage was discontinued. Bimanual massage was performed a 3rd time and some stringy material was noted in the uterine fundus. Due to concern for possible need for D&C, I did consult Dr. Cunha and Dr. Hernandez. They each performed manual expl oration while the patient was sedated with propofol and did not note any obvious retained fragments. Patient received rectal Cytotec and IM methergine; however, bleeding persisted. Therefore, the decision was made to proceed with D&C. Dr. Cunha assumed care at this time. Total blood loss in the delivery room (weighted) was 2240 mL. Induction Criteria - Mejia Score Mejia Score Dilation: 1-2 cm Mejia Score Effacement: 40-50% Mejia Score 's Station: -1 ,0 Mejia Score Consistency: Soft Mejia Score Cervix Position: Midposition Mejia Score Total: 7 Mejia Score Presenting Part: Reports: Cephalic - Induction Gestational Age >/= 39 wks: Yes Estimated Pelvis: Reports: Adequate Reassuring Monitoring Strip: Yes Absence of Tachy Systole: Yes - Augmentation Estimated Pelvis: Reports: Adequate Weight Estimated:: Reports: AGA Reassuring Monitoring Strip: Yes Absence of Tachy Systole: Yes - General Info Date of Service: 03/10/20 - Patient Data Vitals - Most Recent: Last Vital Signs Temp 36.3 C 03/10/20 10:30 Pulse 94 03/10/20 12:27 Resp 18 03/10/20 12:27 BP 131/61 03/10/20 12:27 Pulse Ox 98 03/10/20 11:15 Weight - Most Recent: 101.605 kg Lab Results Last 24 Hours: Laboratory Results - last 24 hr 03/10/20 03/10/20 03/10/20 Range/Units 00:25 00:27 00:27 WBC 12.8 H (5.0-10.0) 10^3/uL RBC 3.57 L (4.2-5.4) 10^6/uL Hgb 9.6 L (12.0-16.0) g/dL Hct 29.6 L (37.0-47.0) % MCV 82.9 (80-100) fL MCH 26.9 L (27.0-34.0) pg MCHC 32.4 L (33.0-35.0) g/dL Plt Count 232 (150-450) 10^3/uL COVID-19 (CONNIE) Negative (NEGATIVE) Blood Type O POSITIVE Gel Antibody Screen Negative Crossmatch See Detail Med Orders - Current: Current Medications Acetaminophen (Tylenol) 650 mg PO Q4H PRN PRN Reason: Pain (Mild 1-3) and fever Butorphanol Tartrate (Stadol) 0.5 mg IVPUSH Q3H PRN PRN Reason: Pain Butorphanol Tartrate (Stadol) 1 mg IVPUSH Q3H PRN PRN Reason: Pain Last Admin: 03/10/20 06:10 Dose: 1 mg Documented by: Calcium Carbonate/Glycine (Tums) 1,000 mg PO Q2H PRN PRN Reason: Heartburn Last Admin: 03/10/20 03:33 Dose: 1,000 mg Documented by: Carboprost Tromethamine (Hemabate Ds) 250 mcg IM ASDIRECTED PRN PRN Reason: HEMORRHAGE Ephedrine Sulfate (Ephedrine Sulfate) 5 mg IVPUSH Q5M PRN PRN Reason: See Label Comments Fentanyl (Sublimaze) 100 mcg IVPUSH Q1H PRN PRN Reason: Pain (moderate 4-6) Last Admin: 03/10/20 12:53 Dose: 100 mcg Documented by: Tranexamic Acid 1,000 mg/ (Sodium Chloride) 110 mls @ 660 mls/hr IV ONETIME PRN PRN Reason: Bleeding Oxytocin/Sodium Chloride (Pitocin In Ns 30 Unit/500 Ml) 30 unit in 500 mls @ 2 mls/hr IV TITRATE REID; Protocol Clindamycin Phosphate 900 mg/ (Sodium Chloride) 106 mls @ 200 mls/hr IV Q8H REID Last Admin: 03/10/20 11:06 Dose: 200 mls/hr Documented by: Lactated Ringer's (Ringers, Lactated) 1,000 mls @ 125 mls/hr IV ASDIRECTED REID Last Admin: 03/10/20 09:25 Dose: 125 mls/hr Documented by: Sodium Chloride (Normal Saline) 1,000 mls @ 500 mls/hr IV .BOLUS REID Oxytocin/Sodium Chloride (Pitocin In Ns 30 Unit/500 Ml) 30 unit in 500 mls @ 2 mls/hr IV TITRATE REID; Protocol Last Admin: 03/10/20 13:45 Dose: 500 munits/min, 500 mls/hr Documented by: Lidocaine HCl (Xylocaine-Mpf 1%) 30 ml INJECT ASDIRECTED PRN PRN Reason: Perineal Repair Methylergonovine Maleate (Methergine) 0.2 mg IM ASDIRECTED PRN PRN Reason: Hemorrhage Last Admin: 03/10/20 13:32 Dose: 0.2 mg Documented by: Misoprostol (Cytotec) 800 mcg RECTAL ASDIRECTED PRN PRN Reason: Hemorrhage Last Admin: 03/10/20 12:55 Dose: 800 mcg Documented by: Misoprostol (Cytotec) 25 mcg VAG Q4H PRN PRN Reason: cervical ripening Last Admin: 03/10/20 01:45 Dose: 25 mcg Documented by: Naloxone HCl (Narcan) 0.1 mg IVPUSH SEECOMMENT PRN PRN Reason: Respiratory Depression Ondansetron HCl (Zofran) 4 mg IVPUSH Q4H PRN PRN Reason: Nausea/Vomiting Promethazine HCl (Phenergan) 12.5 mg IM Q6H PRN PRN Reason: Nausea/Vomiting Sodium Chloride (Saline Flush) 10 ml FLUSH ASDIRECTED PRN PRN Reason: Keep Vein Open Discontinued Medications Epinephrine HCl (Adrenalin) Confirm Administered Dose 1 mg .ROUTE .STK-MED ONE Stop: 03/10/20 09:20 Last Admin: 03/10/20 10:03 Dose: Not Given Documented by: Epinephrine HCl (Adrenalin) 0.1 mg .XX .STK-MED ONE Stop: 03/10/20 00:10 Fentanyl (Sublimaze) Confirm Administered Dose 100 mcg .ROUTE .STK-MED ONE Stop: 03/10/20 09:20 Last Admin: 03/10/20 10:03 Dose: Not Given Documented by: Fentanyl (Sublimaze) 30 mcg ITHECAL .STK-MED ONE Stop: 03/10/20 00:10 Fentanyl (Sublimaze) 30 mcg ITHECAL .STK-MED ONE Stop: 03/10/20 00:10 Lactated Ringer's (Ringers, Lactated) 1,000 mls @ 999 mls/hr IV BOLUS ONE Stop: 03/10/20 00:32 Last Admin: 03/10/20 02:39 Dose: Not Given Documented by: Sodium Chloride (Normal Saline) Confirm Administered Dose 100 mls @ as directed .ROUTE .STK-MED ONE Stop: 03/10/20 15:13 Oxytocin/Sodium Chloride (Pitocin In Ns 30 Unit/500 Ml) Confirm Administered Dose 30 unit in 500 mls @ as directed .ROUTE .STK-MED ONE Stop: 03/10/20 15:50 Sufentanil Citrate (Sufenta) Confirm Administered Dose 50 mcg .ROUTE .STK-MED ONE Stop: 03/10/20 09:20 Last Admin: 03/10/20 10:03 Dose: Not Given Documented by: Sufentanil Citrate (Sufenta) 25 mcg ITHECAL .STK-MED ONE Stop: 03/10/20 00:10 Sufentanil Citrate (Sufenta) 25 mcg ITHECAL .STK-MED ONE Stop: 03/10/20 00:10 - Problem List & Annotations (1) GBS (group B Streptococcus carrier), +RV culture, currently SNOMED Code(s): 1712666514915, 862368725, 8935656502476 Code(s): O99.820 - STREPTOCOCCUS B CARRIER STATE COMPLICATING Status: Acute Current Visit: No (2) care in third trimester SNOMED Code(s): 472398676, 37978315, 99508606, 905172731, 279713555 Code(s): Z34.93 - ENCNTR FOR SUPRVSN OF NORMAL PREG, UNSP, THIRD TRIMESTER Status: Acute Current Visit: No (3) Rubella non-immune status, antepartum SNOMED Code(s): 531051409 Code(s): O99.89 - OTH DISEASES AND CONDITIONS COMPL PREG/CHLDBRTH; Z28.3 - UNDERIMMUNIZATION STATUS Status: Acute Current Visit: No (4) Tobacco smoking affecting in third trimester SNOMED Code(s): 967496476, 75078547, 418810944, 415686335, 406338254 Code(s): O99.333 - SMOKING (TOBACCO) COMPLICATING , THIRD TRIMESTER Status: Acute Current Visit: No (5) (normal spontaneous vaginal delivery) SNOMED Code(s): 40690716, 060897871 Code(s): O80 - ENCOUNTER FOR FULL-TERM UNCOMPLICATED DELIVERY Status: Acute Current Visit: Yes (6) Retained placenta SNOMED Code(s): 932186454 Code(s): O73.0 - RETAINED PLACENTA WITHOUT HEMORRHAGE Status: Acute Current Visit: Yes (7) hemorrhage SNOMED Code(s): 33345902 Code(s): O72.1 - OTHER IMMEDIATE HEMORRHAGE Status: Acute Current Visit: Yes - Problem List Review Problem List Initiated/Reviewed/Updated: Yes - My Orders Last 24 Hours: My Active Orders 03/09/20 23:32 Patient Status [ADT] Routine Notify Provider Vital Signs OB [RC] ASDIRECTED Up ad Cassi [RC] ASDIRECTED Vital Signs [RC] PER UNIT ROUTINE Acetaminophen [TylenoL] 650 mg PO Q4H PRN Butorphanol [Stadol] 0.5 mg IVPUSH Q3H PRN Butorphanol [Stadol] 1 mg IVPUSH Q3H PRN Carboprost Tromethamine [Hemabate DS] 250 mcg IM ASDIRECTED PRN Lidocaine 1% [Xylocaine-MPF 1%] 30 ml INJECT ASDIRECTED PRN Methylergonovine [Methergine] 0.2 mg IM ASDIRECTED PRN Ondansetron [Zofran] 4 mg IVPUSH Q4H PRN Sodium Chloride 0.9% [Saline Flush] 10 ml FLUSH ASDIRECTED PRN Tranexamic Acid [Cyklokapron] 1,000 mg Sodium Chloride 0.9% [Normal Saline] 100 ml IV ONETIME fentaNYL [Sublimaze] 100 mcg IVPUSH Q1H PRN miSOPROStoL [Cytotec] 800 mcg RECTAL ASDIRECTED PRN Saline Lock Insert [OM.PC] Routine Resuscitation Status Routine 03/09/20 23:34 Naloxone [Narcan] 0.1 mg IVPUSH SEECOMMENT PRN Promethazine [Phenergan] 12.5 mg IM Q6H PRN ePHEDrine [ePHEDrine sulfate] 5 mg IVPUSH Q5M PRN Blood Pressure [OM.PC] Routine 03/09/20 23:36 miSOPROStoL [Cytotec] 25 mcg VAG Q4H PRN 03/09/20 23:45 Lactated Ringers [Ringers, Lactated] 1,000 ml IV ASDIRECTED Oxytocin/Normal Saline [Pitocin in NS 30 UNIT/500 ML] 30 unit in 500 ml IV TITRATE Oxytocin/Normal Saline [Pitocin in NS 30 UNIT/500 ML] 30 unit in 500 ml IV TITRATE Sodium Chloride 0.9% [Normal Saline] 1,000 ml IV .BOLUS 03/10/20 00:27 RED BLOOD CELLS LP [BBK] Routine TYPE AND SCREEN [BBK] Routine 03/10/20 03:00 Clindamycin Phosphate [Cleocin] 900 mg Sodium Chloride 0.9% [Normal Saline] 100 ml IV Q8H 03/10/20 03:23 Calcium Carbonate [Tums] 1,000 mg PO Q2H PRN 03/10/20 Breakfast Regular Diet [DIET] 03/10/20 13:54 RED BLOOD CELLS LP [BBK] Routine 03/10/20 15:34 Transfuse PRBC [Transfuse Red Blood Cells] [COMM] Stat - Assessment Assessment:: 24-year-old, now , after after elective IOL at 40w0d - Plan Plan:: Due to persistent bleeding and concern for retained products of conception, Dr. Cunha will take patient to the OR for D&C Sally Campoverde MD
[2020-03-10] MEDS ORDERED: Propofol 200 MG/20 ML SDV IV ONE ×2 (16:10)
[2020-03-10] MEDS ORDERED: Succinylcholine 200 MG/10 ML MDV IV ONE (16:10)
[2020-03-10] MEDS ORDERED: Dexamethasone 4 MG/ML SDV IV ONE (16:10)
[2020-03-10] MEDS ORDERED: Tranexamic Acid 1,000 MG in Sodium Chloride 0.9% 100 ML IV ONE (16:10)
[2020-03-10] MEDS ORDERED: Ondansetron 4 MG/2 ML SDV IV ONE (16:10)
[2020-03-10] MEDS ORDERED: Rocuronium 100 MG/10 ML MDV IV ONE (16:10)
[2020-03-10] MEDS ORDERED: Phenylephrine 1% 10 MG/ML SDV IV ONE ×2 (16:10)
[2020-03-10] MEDS ORDERED: fentaNYL 100 MCG/2 ML SDV IV ONE (16:10)
--- NOTE | 2020-03-10 16:43 | PCM.PRNOTE ---
- Free Text/Narrative Note: OPERATIVE REPORT DATE: 03/10/2020 PRE-PROCEDURE DIAGNOSIS: hemorrhage with retained placenta fragments. POSTOPERATIVE DIAGNOSIS: hemorrhage with retained placenta fragments. Unable to get adequate visualization of the cervix to use sharp curettes. Palpable anterior uterine wall placenta fragment without a cleavage plane. SURGEON: Kia Alvarez MD COURTESY DRIVER: Dr. Pari Hernandez MD. PROCEDURE: Attempted dilatation and curettage, and placement of BT-balloon. BRIEF HISTORY: Patient of Dr. Campoverde, with hemorrhage after normal . Placental delivered by manual extraction by Dr. Campoverde who noted some difficulty finding a plane. She had persistent bleeding and placenta was not intact. Manual exploration performed in the delivery room by Dr. Campoverde, Dr. Hernandez, and myself. With a retained fragment was taken to the ER for sharp curettage. In delivery she was given Pitocin, TXA, Methargen, and Cytotec. Intrathecal had worn off so she also had propofol in the delivery room for the manual exploration. EBL in the delivery room was 2240 ML by weight of the drapes and gauze. CONSENT: The risks including infection, bleeding, pain, and uterine perforation and benefits of the procedure were explained to the patient and her significant other. Written informed consent was obtained. Also discussed possibility that we would not be able to control the bleeding she would need to be transferred to another facility for definitive care that may include hysteroscopy, h ysterectomy, uterine artery ligation or embolization, or other intervention. Time Out done prior to start of procedure. DETAILS: General anesthesia obtained. The patient was placed in the dorsal lithotomy position and vaginal and perineum prepped with Betadine. Straight cath for 800cc of urine performed. Long weighted speculum and long isreal could not be located. An extra large Graves' speculum inserted in the vagina, and side wall retractors placed. Despite using additional ringed forceps, sponge sticks, and retractors I was not able to adequately visualize the cervix. I placed the rin ged forceps on the anterior and posterior lips of the cervix by palpation and with additional instruments, still could not adequate visualization. Dr. Hernandez was called to the room to assist and also could not get adequate visualization after attempting with my assistance. We both had attempted repeat cleaning of the uterus with ray-tech gauze over our fingers and could not remove the fragment. Bleeding was persistent and BT-ballon was place to tamponade the uterus. Manual placement if the balloon was performed by me and verified by Dr. Hernandez to be in the fundus of hte uterus. Total volume of NS infused to the balloon was 330cc, which filled the uterus. Lower uterine segment was noted to be boggy. Vaginal packing x3 then placed to hold the balloon in place. Blood was in the tube, but not into the bag at time of leaving the OR. Transfer to [facility] was arranged. Lambert catheter placed. Blood transfusion started. CONDITION: Stable, but critical with ongoing bleeding. DISPOSITION: Life flight transfer to [facility], [place], Dr. Donahue receiving. EBL: 1000mL in OR, for a total of 3240 mL and 4000 mL likely all total. COMPLICATIONS: Unable to perform sharp curettage due to inadequate visualization of the cervix and inability to find the best instruments for the job. Unable to control the hemorrhage and most brisk bleeding was during placement of the balloon.
== END 2020-03-10 16:11 | DRG 542 ==
LOC: DL.OBCHECK 00:05 → DL.OB 00:08 → OBSVTOIN 12:27 → UNDODISOB 16:11
PROVIDERS: ADMIT Family Medicine; ATTEND Family Medicine
PROC: 10E0XZZ Delivery of Products of Conception, External Approach (ICD-10-PCS; principal; 2020-03-10)
PROC: 30233N1 Transfusion of Nonautologous Red Blood Cells into Peripheral Vein, Percutaneous Approach (ICD-10-PCS; principal; 2020-03-10)
PROC: 10907ZC Drainage of Amniotic Fluid, Therapeutic from Products of Conception, Via Natural or Artificial Opening (ICD-10-PCS; 2020-03-10)
PROC: 3E0P7VZ Introduction of Hormone into Female Reproductive, Via Natural or Artificial Opening (ICD-10-PCS; 2020-03-10)
PROC: 3E0R3BZ Introduction of Anesthetic Agent into Spinal Canal, Percutaneous Approach (ICD-10-PCS; 2020-03-10)
PROC: 0W3R7ZZ Control Bleeding in Genitourinary Tract, Via Natural or Artificial Opening (ICD-10-PCS; 2020-03-10)
DX: O48.0 Post-term pregnancy (principal); Z3A.40 40 weeks gestation of pregnancy; Z37.0 Single live birth; Z88.0 Allergy status to penicillin; O99.334 Smoking (tobacco) complicating childbirth; F17.210 Nicotine dependence, cigarettes, uncomplicated; O99.824 Streptococcus B carrier state complicating childbirth; O69.81X0 Labor and delivery complicated by cord around neck, without compression, not applicable or unspecified; O72.0 Third-stage hemorrhage; Z20.828 Contact with and (suspected) exposure to other viral communicable diseases
CPT/HCPCS: 00940; 01967; 36415; 36430; 59409; 85027; 86850; 86900; 86901; 86920; 86922; A9270-GY; J0171; J0330; J0595; J1100; J2210; J2370; J2405; J2590; J2704; J3010; J3490; J7050; J7120; P9016; U0002